=== PATIENT | female | born 1935 | race Caucasian/White ===

== ENCOUNTER 2017-12-15 11:28 | Outpatient (CLI) | payer OTHER ==
[~2017-12-15 11:28] MED LIST: NAPROXEN500 M1 PO
== END 2017-12-15 16:13 | disposition home or self-care (01) ==
LOC: EKG 11:28
DX: I10 Essential (primary) hypertension (principal)

== ENCOUNTER → 2020-04-22 | Outpatient (CLI) | payer OTHER | END | disposition home or self-care (01) | LOC: OFIC 805 13:30 | PROVIDERS: ATTEND Otolaryngology | DX: K21.9 Gastro-esophageal reflux disease without esophagitis (principal); R49.0 Dysphonia ==

== ENCOUNTER 2022-03-07 19:15 | Emergency (ER) | payer OTHER ==
[~2022-03-07] VITALS: Ht 154.9 cm; Wt 59.0 kg
[2022-03-07] MEDS ORDERED: COZAAR50 MG PO (19:50)
[2022-03-07] MEDS ORDERED: PROTONIX40 M1 PO (19:51)
[2022-03-07] MEDS ORDERED: LOPRESSOR25 MG PO (19:52)
[2022-03-07] MEDS ORDERED: SIMVASTATIN5 MG PO (19:52)
== END 2022-03-07 20:45 | disposition home or self-care (01) ==
LOC: ER 19:15
DX: S50.811A Abrasion of right forearm, initial encounter (principal)

== ENCOUNTER 2024-01-16 06:44 | Day surgery (SDC) | payer OTHER ==
[~2024-01-16 06:44] MED LIST changes: +COZAAR50 MG PO; +LOPRESSOR25 MG PO; +PROTONIX40 M1 PO; +SIMVASTATIN5 MG PO
[2024-01-16] MEDS ORDERED: fentaNYL CITRATE 50 MCG/ML AMPUL IV PUSH ONE (10:00)
[2024-01-16] MEDS ORDERED: MIDAZOLAM HCL 2 MG/2 ML VIAL IV ONE (10:00)
[2024-01-16] MEDS ORDERED: DIPHENHYDRAMINE HCL 50 MG/ML VIAL 1ML IV ONE (10:00)
== END 2024-01-16 11:15 | disposition home or self-care (01) ==
LOC: AMB-ENDOS 06:44
PROVIDERS: ATTEND Surgery
DX: K63.5 Polyp of colon (principal); K57.30 Diverticulosis of large intestine without perforation or abscess without bleeding; K62.5 Hemorrhage of anus and rectum

== ENCOUNTER 2024-02-27 12:28 | Outpatient (CLI) | payer OTHER | END 2024-02-27 12:34 | disposition home or self-care (01) | LOC: NUCLEAR 12:28 | PROVIDERS: ATTEND Psychiatry & Neurology Clinical Neurophysiology | DX: G31.83 Neurocognitive disorder with Lewy bodies (principal) | CPT/HCPCS: 78830; A9557 ==